=== PATIENT | male | born 1990 | race Caucasian/White ===

== ENCOUNTER 2024-08-18 07:23 | Emergency (ER) | payer SELFPAY ==
--- NOTE | ~2024-08-18 | XR_ITS ---
XR ankle LT min 3V Ordering provider: Krzysztof Nelson MD History: . pain AFTER FALLING OFF A TRIALER LAST NIGHT . Comparison: None. FINDINGS: BONES: No acute fracture or dislocation. JOINT SPACES: The ankle mortise is normal. SOFT TISSUES: Normal. Calcaneal spur. IMPRESSION: No acute osseous abnormality left ankle. Reviewed, dictated and finalized at location A.
[2024-08-18 07:29] VITALS: BP 137/88; PULSE 78; RESP 16; TEMP 36.7; O2SAT 100
--- NOTE | 2024-08-18 07:45 | ED_ITS ---
HPI - General Adult General Chief complaint: Extremity Injury, Lower Stated complaint: ankle injury Time Seen by Provider: 08/18/24 07:28 History of Present Illness HPI narrative: Patient is a 34-year-old gentleman who presents emergency department chief complaint of left ankle pain. The patient reports that he jumped off of a truck yesterday and had pain in his left ankle patient reports hurts whenever he tries to ambulate Related Data Allergies Allergy/AdvReac Type Severity Reaction Status Date / Time No Known Allergies Allergy Verified 08/18/24 07:52 Review of Systems Review of Systems: A 10 system review of systems was completed on the patient and is negative except for what is stated in the HPI. Nursing and ancillary documentation was reviewed. Exam Narrative: GENERAL: Well-appearing, well-nourished, and in no acute distress. HEAD: Normocephalic, atraumatic. EYES: PERRLA and EOMI. ENT: Nares clear, no rhinorrhea or epistaxis. Mucous membranes moist. NECK: Supple. CHEST: Clear to auscultation. No respiratory distress. HEART: Regular rate and rhythm. No murmur heard. Normal peripheral pulses. ABDOMEN: Soft, nontender, nondistended, normal active bowel sounds. EXTREMITIES: Normal range of motion tenderness to palpation the medial lateral malleolus of the left ankle. No edema. SKIN: Warm, dry, no rash. NEURO: No focal deficits. Alert and oriented x3. PSYCH: Normal mood and affect. Course Vital Signs Vital signs: Vital Signs Temperature 36.7 C 08/18/24 07:29 Pulse Rate 78 08/18/24 07:29 Respiratory Rate 16 08/18/24 07:29 Blood Pressure 137/88 08/18/24 07:29 Pulse Oximetry 100 08/18/24 07:29 Temperature 36.7 C 08/18/24 07:29 Pulse Rate 78 08/18/24 07:29 Respiratory Rate 16 08/18/24 07:29 Blood Pressure 137/88 08/18/24 07:29 Pulse Oximetry 100 08/18/24 07:29 Medical Decision Making [facility] Narrative Medical decision making narrative: Differential diagnosis includes fracture, sprain, strain Plain film x-ray showed no evidence of fracture Vital Signs Vital Signs: Vital Signs Temperature 36.7 C 08/18/24 07:29 Pulse Rate 78 08/18/24 07:29 Respiratory Rate 16 08/18/24 07:29 Blood Pressure 137/88 08/18/24 07:29 Pulse Oximetry 100 08/18/24 07:29 Temperature 36.7 C 08/18/24 07:29 Pulse Rate 78 08/18/24 07:29 Respiratory Rate 16 08/18/24 07:29 Blood Pressure 137/88 08/18/24 07:29 Pulse Oximetry 100 08/18/24 07:29 Discharge Plan Discharge Clinical Impression: Ankle sprain and strain Patient Disposition: Home Condition: Stable Instructions: Antibiotic Form, Ankle Sprain (ED) Patient Language: Icelandic Follow-up/Referrals: Kishor Zhao DO [Physician] - PHYSICIAN,INFORMATION TECHNOLOGY DIRECTOR [Non-Staff] - Time of Disposition: 09:35
--- OUTSIDE RECORDS SUMMARY | 2024-08-18 07:54 | XMS_ITS | Clinical Summary ---
Author Organization [facility] Address [address] [place] [id number] Care Team Providers Care Bicycle Messenger Name Role Phone No, Physician Primary Care Provider [phone] Allergies No known active allergies Medications ibuprofen (ADVIL,MOTRIN) 800 mg tablet Take 1 tablet (800 mg total) by mouth 3 (three) times a day as needed for pain 30 tablet 08/22/2021 Active amLODIPine (NORVASC) 5 mg tabletIndication s:hypertension,p revention of anginal pain from vasospastic angina Take 1 tablet (5 mg total) by mouth daily 30 tablet 02/05/2023 Active acetaminophen (TYLENOL) 325 mg tabletIndication s:Fever,Pain Take 2 tablets (650 mg total) by mouth every 4 (four) hours as needed for pain 30 tablet 02/05/2023 Active famotidine (PEPCID) 20 mg tabletIndication s:Dyspepsia Take 1 tablet (20 mg total) by mouth daily 30 tablet 02/06/2023 Active Active Problems Problem Noted Date Diagnosed Date Angina pectoris 02/04/2023 Assessment & Plan (02/04/2023 8:05 PM CDT): Chest pain in the middle of the chest that is worse with exertion and deep breaths, not relieved with rest. Improves with leaning forward. Associated with light headedness, shortness of breath when severe Ddx: Pericarditis, GERD, arrhythmia. Less likely to be ACS. - Troponin negative x2 - EKG showed prominent peaked t waves - monitor on telemetry - check CRP and ESR - TTE - tylenol and ibuprofen for pain control - pepcid for possible gerd Hyperkalemia 02/04/2023 Assessment & Plan (02/04/2023 7:52 PM CDT): Elevated to 5.2 on admission with prominent peaked T waves on EKG - s/p calcium gluconate and lasix - repeat K was 4.5 - trend K q12h - unclear etiology as was not dehydrated, taking in large amounts of electrolyte drinks or supplements, no hx of kidney disease in self or family. - monitor on telemetry Moderate right ankle sprain 09/05/2021 Acute right ankle pain 09/05/2021 Right foot pain 09/05/2021 Surgical History Surgery Date Site/Laterality Comments KNEE SURGERY Right WRIST FRACTURE SURGERY Right Medical History Medical History Date Comments Known health problems: none Family History Medical History Relation Name Comments Heart disease Father Relation Name Status Comments Father Social History Tobacco Use Types Packs/Day Years Used Date Smoking Tobacco: Every Day Cigarettes 1 10 Personal Safety Answer Date Recorded Have you ever been in or are you currently in a harmful physical or emotional relationship or is someone making you feel afraid or unsafe? 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 Gender Identity Not on file Sexual Orientation Not on file Obstetrics History Last Filed Vital Signs Vital Sign Reading Time Taken Comments Blood Pressure 119/73 02/05/2023 7:45 AM CDT Pulse 67 02/05/2023 7:45 AM CDT Temperature 36.7 C (98.1 F) 02/05/2023 7:45 AM CDT Respiratory Rate 18 02/05/2023 7:45 AM CDT Oxygen Saturation 97% 02/05/2023 7:45 AM CDT Inhaled Oxygen Concentration - - Weight 76.2 kg (168 lb) 02/04/2023 8:50 PM CDT Height 172.7 cm (5' 8 ) 02/04/2023 8:50 PM CDT Body Mass Index 25.54 02/04/2023 8:50 PM CDT Plan of Treatment Health Maintenance Due Date Last Done Comments Depression Screening 1990 Hepatitis C Screening 1990 DTaP/Tdap/Td Vaccine (1 - Tdap) 2001 Varicella Vaccines (1 of 2 - 13+ 2-dose series) 2003 Hepatitis B Screening 2008 Regular Well Visit/Exam 18-64 2008 Pneumococcal vaccine <65 (1 of 2 - PCV) 2009 Influenza Vaccine (#1) 2023 HPV Vaccines Aged Out No longer eligi ble based on patient's age to complete this topic [place] [address] Advance Directives For more information, please contact: [phone] * Full Code (Latest Code Status on File) Date Activated Date Inactivated Comments 02/04/2023 7:45 PM 02/05/2023 6:01 PM Care Teams Bicycle Messenger Relationship Specialty Start Date End Date No, Physician PCP - General 08/22/21
--- OUTSIDE RECORDS SUMMARY | 2024-08-18 07:54 | XMS_ITS | Referral Summary ---
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
== END 2024-08-18 09:45 | disposition home or self-care (01) ==
PROVIDERS: Emergency Provider Emergency Medicine
DX: S93.402A Sprain of unspecified ligament of left ankle, initial encounter (principal); X58.XXXA Exposure to other specified factors, initial encounter
CPT/HCPCS: 73610; 99283